=== PATIENT | female | born 1960 | race Caucasian/White ===

== ENCOUNTER 2023-05-09 10:40 | Day surgery (SDC) | payer BC ==
[~2023-05-09] VITALS: Ht 157.5 cm; Wt 68.0 kg
[~2023-05-09 10:40] MED LIST: ACET-1304 PO; ACETAMINOPHEN IV 1000 MG/100ML (10MG/ML) IV ONE; ASPI1TAB20 PO; CALC-371 OR; CELECOXIB 100 MG CAP PO ONE; CYAN-17 PO; GABAPENTIN 400 MG CAP PO ONE; HYDR1TAB97 PO; IBUP-1453 PO; ISO60SRT PO; LEV100T PO; MAGN400T40 OR; METH-1182 PO; METH100I IJ; MULT-1166 PO; NITR1SPR TL; OMEG1CAP36 PO; PYRI1TAB3 PO; ROSU10TA16 PO; TIMO0.5S28 OP; TRAV0.00 OP
[2023-05-09] MEDS ORDERED: KETAMINE 50mg/ML 10ml Vial (500mg/10ml) IV ONE (10:41)
[2023-05-09] MEDS ORDERED: ONDANSETRON HCL 4 MG/2 ML VIAL ONE (13:22)
[2023-05-09] MEDS ORDERED: GLYCOPYRROLATE 0.2 MG/ML 1ML VIAL ONE ×2 (13:22→15:46)
[2023-05-09] MEDS ORDERED: KETOROLAC TROMETH 30 MG/ML 1ML VIAL ONE (13:22)
[2023-05-09] MEDS ORDERED: LIDOCAINE 2% (LOCAL ANESTH.) PF 5ml SDV ONE (13:22)
[2023-05-09] MEDS ORDERED: PROPOFOL 10 MG/ML 20 ML IV ONE ×4 (13:22→16:11)
[2023-05-09] MEDS ORDERED: DexAMETHasone SOD PHOS 10MG/1ML VIAL INJ ONE (13:22)
[2023-05-09] MEDS ORDERED: SODIUM CHLORIDE LOCK 10 ML ONE ×2 (13:25→15:09)
[2023-05-09] MEDS ORDERED: ceFAZolin 1GM/50ML 100 ML IV ONE (13:57)
[2023-05-09] MEDS ORDERED: PHENYLEPHRINE HCL 10 MG/ML VL ONE (15:09)
[2023-05-09 16:45] VITALS: PULSE 75; RESP 16; O2SAT 100
[2023-05-09 17:10] VITALS: PULSE 77; RESP 15; O2SAT 96
[2023-05-09 17:30] VITALS: BP 124/64; PULSE 70; RESP 18; O2SAT 98
== END 2023-05-09 17:45 | disposition home or self-care (01) ==
LOC: SUR 10:40
PROVIDERS: ATTEND Orthopaedic Surgery Sports Medicine
DX: S82.001A Unspecified fracture of right patella, initial encounter for closed fracture (principal); W19.XXXA Unspecified fall, initial encounter; Y93.89 Activity, other specified; Y92.89 Other specified places as the place of occurrence of the external cause; Y99.8 Other external cause status; I10 Essential (primary) hypertension; I25.2 Old myocardial infarction; E78.5 Hyperlipidemia, unspecified; I49.9 Cardiac arrhythmia, unspecified; E03.9 Hypothyroidism, unspecified; Z79.1 Long term (current) use of non-steroidal anti-inflammatories (NSAID); Z79.82 Long term (current) use of aspirin; Z79.899 Other long term (current) drug therapy; Z79.890 Hormone replacement therapy; Z79.891 Long term (current) use of opiate analgesic; Z98.890 Other specified postprocedural states
CPT/HCPCS: 27524; 73562; 76000; C1713; C1769; J0131; J0690; J1100; J1885; J2001; J2370; J2405; J2704

== ENCOUNTER 2024-02-13 09:30 | Day surgery (SDC) | payer BC ==
[~2024-02-13] VITALS: Ht 157.5 cm; Wt 65.8 kg
[~2024-02-13 09:30] MED LIST changes: -ACETAMINOPHEN IV 1000 MG/100ML (10MG/ML) IV ONE; +ALP15OS OP; -CELECOXIB 100 MG CAP PO ONE; -GABAPENTIN 400 MG CAP PO ONE; -HYDR1TAB97 PO; -IBUP-1453 PO; -METH-1182 PO; -METH100I IJ; +PROB1CHW27 PO; -TIMO0.5S28 OP
[2024-02-13] MEDS ORDERED: EPINEPHrine HCL 1 MG/1 ML AMP ONE ×2 (09:37→09:38)
[2024-02-13] MEDS ORDERED: BUPIVACAINE 0.5% P/F INJ 10 ML VIAL ONE (09:38)
[2024-02-13] MEDS ORDERED: ceFAZolin 2 GM/D5W50ml 50 ML IV ONE (10:22)
[2024-02-13] MEDS ORDERED: fentaNYL CITRATE 100 MCG/2 ML VL ONE (10:29)
[2024-02-13] MEDS ORDERED: MIDAZOLAM HCL 2MG/2ML 2ml VIAL (1mg/ml) ONE (10:40)
[2024-02-13] MEDS ORDERED: PROPOFOL 10 MG/ML 20 ML IV ONE (10:41)
[2024-02-13] MEDS ORDERED: ePHEDrine SULFATE 50 MG/ML AMP ONE (13:02)
[2024-02-13 13:46] VITALS: RESP 16; TEMP 98.7; O2SAT 98
[2024-02-13] MEDS ORDERED: HYDROmorphone HCL 2 MG/ML VL/or syr IV PRN (14:00)
[2024-02-13] MEDS ORDERED: MEPERIDINE HCL (25 MG/ML) 1ML VIAL IV PRN (14:00)
[2024-02-13] MEDS: ONDANSETRON HCL 4 MG/2 ML VIAL IV ONE (15:58)
[2024-02-13 16:10] VITALS: BP 139/77; PULSE 67; RESP 12; O2SAT 95
== END 2024-02-13 17:10 | disposition home or self-care (01) ==
LOC: SUR 09:30
PROVIDERS: ATTEND Orthopaedic Surgery Sports Medicine
DX: S83.241A Other tear of medial meniscus, current injury, right knee, initial encounter (principal); M24.661 Ankylosis, right knee; M94.261 Chondromalacia, right knee; E78.5 Hyperlipidemia, unspecified; I10 Essential (primary) hypertension; I25.2 Old myocardial infarction; E03.9 Hypothyroidism, unspecified; Z79.899 Other long term (current) drug therapy; Z98.890 Other specified postprocedural states; Z95.810 Presence of automatic (implantable) cardiac defibrillator; Z90.710 Acquired absence of both cervix and uterus; X58.XXXA Exposure to other specified factors, initial encounter; Y93.89 Activity, other specified; Y92.89 Other specified places as the place of occurrence of the external cause; Y99.8 Other external cause status
CPT/HCPCS: 29879; 29881; J0690; J2250; J2405; J2704; J3010; J3490; J0171